=== PATIENT | male | born 1965 | race Caucasian/White ===

== ENCOUNTER 2016-09-14 | Emergency (ER) | payer OTHER | END 2016-09-14 13:23 | disposition home or self-care (01) ==

== ENCOUNTER 2017-04-24 11:26 | Emergency (ER) | payer OTHER ==
[2017-04-24 12:06] LABS: BASOPHILS % (AUTO) 0.3 %; HCT - HEMATOCRIT 43.6 % (42.0-52.0); HGB - HEMOGLOBIN 15.1 g/dL (14.0-18.0); LYMPHOCYTES # (AUTO) 1.1 10^3/uL (1.5-3.5); LYMPHOCYTES % (AUTO) 11.1 %; MEAN CORPUSCULAR HEMOGLOBIN 32.6 pg (27.0-31.0); MEAN CORPUSCULAR HGB CONC 34.6 g/dL (32.0-36.0); MEAN PLATELET VOLUME 8.3 fL (7.4-11.4); MONOCYTES # (AUTO) 0.5 10^3/uL (0.0-1.0); MONOCYTES % (AUTO) 5.4 %; NEUTROPHILS # (AUTO) 8.4 10^3/uL (1.5-6.6); NEUTROPHILS % (AUTO) 83.2 %; RED BLOOD COUNT 4.64 10^6/uL (4.70-6.10); RED CELL DISTRIBUTION WIDTH 13.4 % (12.0-15.0); UNCORRECTED WHITE BLOOD COUNT 10.1 x10^3/uL; WHITE BLOOD COUNT 10.1 x10^3/uL (4.8-10.8)
[2017-04-24 12:21] LABS: ALBUMIN/GLOBULIN RATIO 1.9 (1.0-2.2); BILIRUBIN,TOTAL 1.9 mg/dL (0.2-1.0); CALCIUM 9.5 mg/dL (8.5-10.3); CREATININE 1.5 mg/dL (0.6-1.2)
[2017-04-24 12:37] LABS: BILIRUBIN,URINE NEGATIVE (NEGATIVE)
[2017-04-24 12:53] LABS: UA w/ MICROSCOPIC CHARGE YES
[2017-04-24] MEDS ORDERED: HYDROmorphone 1 MG/ML CARPUJECT IVP STA (12:53)
[2017-04-24] MEDS ORDERED: ONDANSETRON 4 MG/2 ML VIAL IVP STA (12:53)
[2017-04-24] MEDS ORDERED: SODIUM CHLORIDE 0.9% 1,000 ML IV ONE ×2 (12:53)
--- NOTE | 2017-04-24 12:58 | ED Physician Documentation ---
PD HPI ABD PAIN - Stated complaint Stated Complaint: ABD PX - Chief complaint Chief Complaint: Abd Pain - History obtained from History obtained from: Patient, Family () - History of Present Illness Timing - onset: Other (Relatively sudden onset and constant although waxing and waning right lower quadrant pain which has not migrated since last night with multiple episodes of vomiting last night and dry heaves today, a small BM this morning. No history of abdominal surgeries. No fevers.) Review of Systems Ten Systems: 10 systems reviewed and negative Constitutional: denies: Fever, Chills Cardiac: denies: Chest pain / pressure, Palpitations Respiratory: denies: Dyspnea, Cough GI: reports: Abdominal Pain, Nausea, Vomiting. denies: Constipation, Diarrhea : reports: Hematuria (possibly last night) PD PAST MEDICAL HISTORY - Past Medical History Past Medical History: No - Past Surgical History Past Surgical History: Yes - Present Medications Home Medications: Ambulatory Orders Medication Instructions Recorded Confirmed Guaifenesin/Pseudoephedrne HCl 1 each PO BID PRN #20 tab.er.12h 09/14/16 [Mucinex D ER 600-60 mg Tablet] Ibuprofen [Motrin] 800 mg PO Q8H PRN #30 tablet 09/14/16 Mometasone Furoate [Nasonex] 1 spray NS BID #1 spray.pump 09/14/16 Ibuprofen [Motrin] 800 mg PO Q8H PRN #30 tablet 04/24/17 Oxycodone HCl/Acetaminophen 1 - 2 tab PO Q4H PRN #15 tablet 04/24/17 [Percocet 5-325 mg Tablet] Tamsulosin [Flomax] 0.4 mg PO DAILY #14 capsule 04/24/17 - Allergies Allergies/Adverse Reactions: Allergies Allergy/AdvReac Type Severity Reaction Status Date / Time No Known Drug Allergies Allergy Verified 09/14/16 11:37 - Social History Does the pt smoke?: Yes Smoking Status: Current every day smoker Does the pt drink ETOH?: Yes Does the pt have substance abuse?: No - Family History Family history: reports: Non contributory PD ED PE NORMAL - Vitals Vital signs reviewed: Yes - General General: Alert and oriented X 3, No acute distress, Other (Multiple diffuse lipomas) - HEENT HEENT: PERRL, EOMI - Neck Neck: Supple, no meningeal sign, No bony TTP - Cardiac Cardiac: RRR, No murmur - Respiratory Respiratory: No respiratory distress, Clear bilaterally - Abdomen Abdomen: Soft, Other (Mild tenderness of the right lower quadrant with negative Rovsing sign, multiple abdominal wall and diffuse lipomas. Normal bowel tones.) - Back Back: No CVA TTP, No spinal TTP - Derm Derm: Normal color, Warm and dry - Extremities Extremities: No edema, No calf tenderness / cord - Neuro Neuro: Alert and oriented X 3, Normal speech - Psych Psych: Normal mood, Normal affect Results - Vitals Vitals: Vital Signs - 24 hr 04/24/17 11:32 Temperature 36.8 C Heart Rate 57 L Respiratory 20 Rate Blood Pressure 157/87 H O2 Saturation 100 Oxygen O2 Source Room air - Labs Labs: Laboratory Tests 04/24/17 04/24/17 04/24/17 11:57 11:57 12:22 WBC 10.1 RBC 4.64 L Hgb 15.1 Hct 43.6 MCV 94.0 MCH 32.6 H MCHC 34.6 RDW 13.4 Plt Count 187 MPV 8.3 Neut # 8.4 H Lymph # 1.1 L [place] # 0.5 Eos # 0.0 Baso # 0.0 Absolute Nucleated RBC 0.00 Nucleated RBCs 0.0 Sodium 137 Potassium 4.0 Chloride 102 Carbon Dioxide 25 Anion Gap 10.0 BUN 22 H Creatinine 1.5 H Estimated GFR (MDRD) 49 L Glucose 118 H Calcium 9.5 Total Bilirubin 1.9 H AST 31 ALT 34 Alkaline Phosphatase 39 L Total Protein 7.0 Albumin 4.6 Globulin 2.4 Albumin/Globulin Ratio 1.9 Lipase 20 L Urine Color YELLOW Urine Clarity CLEAR Urine pH 6.0 Ur Specific [place] >=1.030 H Urine Protein NEGATIVE Urine Glucose (UA) NEGATIVE Urine Ketones >=80 H Urine Occult Blood MODERATE H Urine Nitrite NEGATIVE Urine Bilirubin NEGATIVE Urine Urobilinogen 0.2 (NORMAL) Ur Leukocyte Esterase NEGATIVE Urine RBC 6-10 H Urine WBC 0-3 Ur Squamous Epith Cells NONE SEEN Urine Bacteria None Seen Ur Microscopic Review INDICATED Urine Culture Comments NOT INDICATED - Rads (name of study) CT KUB Radiology: EMP read contemporaneously (Obstructing 5 mm stone in the distal right ureter with infrarenal calcifications on both sides) PD MEDICAL DECISION MAKING - ED course ED course: 52-year-old gentleman presents with acute onset right lower quadrant pain most consistent with renal colic which is proven on CT. He was pain-free after a single dose of narcotic pain medication here. The patient and family were counseled as to the diagnosis and need for follow- up. I counseled the patient with regard to signs and symptoms that would necessitate an urgent reevaluation in the emergency department. They understand they are welcome to return at any time if worse or if not improving as expected. This document was made in part using voice recognition software. While efforts are made to proofread this documents, sound alike and grammatical errors may occur. Departure - Departure Disposition: Home, Self Care Clinical Impression: Renal colic Condition: Good Record reviewed to determine appropriate education?: Yes Instructions: ED Stone Renal W Colic Prescriptions: Tamsulosin [Flomax] 0.4 mg PO DAILY #14 capsule Ibuprofen [Motrin] 800 mg PO Q8H PRN #30 tablet PRN Reason: PAIN &/OR FEVER Oxycodone HCl/Acetaminophen [Percocet 5-325 mg Tablet] 1 - 2 tab PO Q4H PRN #15 tablet PRN Reason: Pain Comments: [place] potential referral to a urologist. Strain your urine as discussed and if anything comes out [place]. Return if worse. Your blood pressure was elevated today on check into the emergency department. This does not mean that you have hypertension, it is a common phenomenon to come to the emergency department and have elevated blood pressure. I recommend that she see your primary care physician within the week to have it rechecked when you are feeling better. Do not drink or drive while taking narcotic pain medication. Note that many narcotic pain relievers also contain Tylenol/acetaminophen. Please ensure that your total dose of acetaminophen from all sources does not exceed 3 g (3000 mg) per day. You may get constipated while on this medication. Take a stool softener such as Colace twice a day while you are on it. Also add an [id number] laxative such as senna or MiraLAX on any day that you do not have a bowel movement. If you received a narcotic pain medication or sedative while in the emergency department, do not drive for the next 24 hours.
[2017-04-24] MEDS ORDERED: HYDROmorphone 1 MG/ML CARPUJECT ONE (12:59)
[2017-04-24] MEDS ORDERED: ONDANSETRON 4 MG/2 ML VIAL ONE (12:59)
--- NOTE | 2017-04-24 13:47 | CT Preliminary Report ---
Exam: CT Abdomen/Pelvis W/O IMPRESSION: 1. Obstructing ureterolithiasis in the distal right ureter results in mild hydronephrosis 2. Bilateral nonobstructing nephrolithiasis [facility] SITE ID: [id number]
--- NOTE | 2017-04-24 13:50 | CT Report ---
EXAM: CT ABDOMEN AND PELVIS (CT KUB) EXAM DATE: 04/24/2017 01:24 PM. CLINICAL HISTORY: RLQ pain, renal colic vs appy. COMPARISONS: None. TECHNIQUE: Routine axial helical CT imaging was performed through the abdomen and pelvis without IV c ontrast. Reconstructions: Coronal and sagittal. In accordance with CT protocol optimization, one or more of the following dose reduction techniques w ere utilized for this exam: automated exposure control, adjustment of mA and/or KV based on patient s ize, or use of iterative reconstructive technique. FINDINGS: Lung Bases: Subsegmental atelectasis at the bases. Right Kidney/Ureter: Asymmetric right perinephric edema. Mild right hydronephrosis. Asymmetric right periureteral edema. Obstructing ureterolithiasis in the distal right ureter, series 4, axial image 12 6, measures 5 x 4 x 4 mm, located approximately 1-2 cm above the ureterovesicular junction. Multiple nonobstructing right-sided nephrolithiasis. For example, nonobstructing nephrolithiasis in the inferi or pole right kidney, series 4, axial image 71, measures 3 mm. Left Kidney/Ureter: Multiple nonobstructing nephrolithiasis. For example, nonobstructing nephrolithia sis in the inferior pole left kidney, series 4, axial image 70, measures 5 mm. No hydronephrosis. No ureterolithiasis. Other Solid Organs: Noncontrast images of the solid organs are grossly unremarkable. Gallbladder/Bile Ducts: Unremarkable. Peritoneal Cavity: No free fluid, free air or roma adenopathy. Bowel is grossly unremarkable. Pelvic Organs: Bladder wall thickening with under distention. Vasculature: Unremarkable. Other: Degenerative disk disease at L4/L5 and L5/S1. IMPRESSION: 1. Obstructing ureterolithiasis in the distal right ureter results in mild hydronephrosis 2. Bilateral nonobstructing nephrolithiasis [facility] Referring Provider Line: [phone] SITE ID: [id number]
[2017-04-24 13:55] LABS: UR CULTURE IF IND NOT INDICATED; WBC,URINE 0-3 /HPF (0-3)
[2017-04-24] MEDS ORDERED: KETOROLAC 60 MG/2 ML VIAL IVP STA (14:20)
[2017-04-24] MEDS ORDERED: KETOROLAC 60 MG/2 ML VIAL ONE (14:28)
[2017-04-24 14:52] VITALS: BP 142/72
== END 2017-04-24 15:05 | disposition home or self-care (01) ==
LOC: ED 11:26
DX: N23 Unspecified renal colic (principal); R03.0 Elevated blood-pressure reading, without diagnosis of hypertension; F17.200 Nicotine dependence, unspecified, uncomplicated
CPT/HCPCS: 36415; 74176; 80053; 81001; 83690; 85025; 96374; 96375; 99283; 99284; J1170; 81003; 87086

== ENCOUNTER 2018-08-05 16:25 | Emergency (ER) | payer OTHER ==
[2018-08-05 16:33] VITALS: BP 145/89
[2018-08-05] MEDS ORDERED: LIDOCAINE 1% 2 ML VIAL TD STA (17:06)
[2018-08-05] MEDS ORDERED: LIDOCAINE 1% 2 ML VIAL ONE (17:29)
--- NOTE | 2018-08-05 18:06 | ED Physician Documentation ---
History of Present Illness - Stated complaint Stated Complaint: FINGER LAC - Chief complaint Chief Complaint: Laceration PD PAST MEDICAL HISTORY - Past Medical History Past Medical History: No - Past Surgical History Past Surgical History: Yes - Present Medications Home Medications: Ambulatory Orders Medication Instructions Recorded Confirmed Guaifenesin/Pseudoephedrne HCl 1 each PO BID PRN #20 tab.er.12h 09/14/16 [Mucinex D ER 600-60 mg Tablet] Ibuprofen [Motrin] 800 mg PO Q8H PRN #30 tablet 09/14/16 Mometasone Furoate [Nasonex] 1 spray NS BID #1 spray.pump 09/14/16 Ibuprofen [Motrin] 800 mg PO Q8H PRN #30 tablet 04/24/17 Oxycodone HCl/Acetaminophen 1 - 2 tab PO Q4H PRN #15 tablet 04/24/17 [Percocet 5-325 mg Tablet] Tamsulosin [Flomax] 0.4 mg PO DAILY #14 capsule 04/24/17 - Allergies Allergies/Adverse Reactions: Allergies Allergy/AdvReac Type Severity Reaction Status Date / Time No Known Drug Allergies Allergy Verified 08/05/18 16:33 - Social History Does the pt smoke?: Yes Smoking Status: Current every day smoker Does the pt drink ETOH?: Yes Does the pt have substance abuse?: No Results - Vitals Vitals: Vital Signs - 24 hr 08/05/18 16:31 Temperature 36.4 C L Heart Rate 87 Respiratory 20 Rate Blood Pressure 145/89 H O2 Saturation 98 Oxygen O2 Source Room air Procedures - Laceration (location) L index Length in cm: 4.5 Wound type: Curved Neurovascular status: Sensory intact, Motor intact Anesthesia: Lidocaine 1% (dig block), Volume - enter cc (5) Wound Preparation: Irrigated copiously NS (500 + cc by CASH Waddell), Wound explored, To the base. No: FB identified Skin layer closure: Nylon, Interrupted, Size #-0 - enter number (5), Sutures - enter # (7) Other: Patient tolerated well, No complications, Dressing applied, Tetanus UTD. No: Neurovascular intact (dig block still in effect) Departure - Departure Disposition: 01 Home, Self Care Clinical Impression: Laceration Condition: Good Instructions: ED Laceration Hand Comments: Keep the wound clean Apply antibiotic ointment twice a day Sutures out in 10 days We washed the wound very very carefully. But even with good wound care, some wounds get infected. If you notice any redness swelling discharge streaks or fever come back to the ER for a wound check. Forms: Activity restrictions
== END 2018-08-05 18:58 | disposition home or self-care (01) ==
LOC: ED 16:25
DX: S61.211A Laceration without foreign body of left index finger without damage to nail, initial encounter (principal); W27.0XXA Contact with workbench tool, initial encounter; F17.200 Nicotine dependence, unspecified, uncomplicated
CPT/HCPCS: 12002; 99282; 99283

== ENCOUNTER 2018-12-21 11:59 | Emergency (ER) | payer OTHER ==
[2018-12-21 12:06] VITALS: BP 174/86
[2018-12-21] MEDS ORDERED: ceFAZolin 1 GM VIAL IM STA (12:21)
[2018-12-21] MEDS ORDERED: BUFFERED LIDOCAINE 10 ML SYRINGE SUBQ STA (12:21)
[2018-12-21] MEDS ORDERED: BUPIVACAINE 0.5% PF 10 ML VIAL SUBQ STA (12:23)
--- NOTE | 2018-12-21 12:23 | ED Physician Documentation ---
PD HPI UPPER EXT INJURY - Stated complaint Stated Complaint: RT RING FINGER LAC - Chief complaint Chief Complaint: Ext Problem - History obtained from History obtained from: Patient - History of Present Illness Location: Right (Generally healthy 53-year-old gentleman who is up-to-date on tetanus who got his right ring finger caught between 2 logs and crushed at home just prior to arrival.) Review of Systems Ten Systems: 10 systems reviewed and negative Constitutional: reports: Reviewed and negative Cardiac: reports: Reviewed and negative Respiratory: reports: Reviewed and negative PD PAST MEDICAL HISTORY - Past Medical History Past Medical History: No - Past Surgical History Past Surgical History: Yes - Present Medications Home Medications: Ambulatory Orders Medication Instructions Recorded Confirmed Cephalexin [Keflex] 500 mg PO Q6H #28 capsule 12/21/18 Hydrocodone/Acetaminophen 1 - 2 each PO Q6H PRN #14 tablet 12/21/18 [Hydrocodon-Acetaminophen 5-325] - Allergies Allergies/Adverse Reactions: Allergies Allergy/AdvReac Type Severity Reaction Status Date / Time No Known Drug Allergies Allergy Verified 12/21/18 12:06 - Social History Does the pt smoke?: Yes Smoking Status: Current every day smoker Does the pt drink ETOH?: Yes Does the pt have substance abuse?: No - Family History Family history: reports: Non contributory - Immunizations Immunizations: TDAP current <10years - POLST Patient has POLST: No PD ED PE NORMAL - Vitals Vital signs reviewed: Yes - General General: Alert and oriented X 3, No acute distress - Extremities Extremities: Other (There is a circumferential blunt force type laceration of the right ring finger with basically a degloving injury just distal to the DIP. The nail is completely avulsed from the proximal nail bed but tacked down to the amputated portion which is hanging by soft tissue.) - Neuro Neuro: Alert and oriented X 3, Normal speech Results - Vitals Vitals: Vital Signs - 24 hr 12/21/18 12/21/18 12:02 12:51 Temperature 36.7 C Heart Rate 111 H Respiratory 16 18 Rate Blood Pressure 174/86 H O2 Saturation 94 Oxygen O2 Source Room air Procedures - Laceration (location) R 4th finger Length in cm: 3 Wound type: Stellate, Irregular Neurovascular status: No: Sensory intact Anesthesia: Lidocaine 1%, Marcaine 0.5%, OTH (digital block with 50/50) Wound Preparation: Hibiclens, Irrigated copiously NS Skin layer closure: Nylon, Interrupted, Size #-0 - enter number (5-0) Other: Tetanus UTD Complexity: Simple PD MEDICAL DECISION MAKING - ED course ED course: 53-year-old gentleman with basically degloving tip amputation of the right fourth finger. He is insensate at the tip and has a comminuted tuft fracture. Case was discussed by phone with the on-call orthopedic consultants, Dr. London who recommended a trial of reattachment, but is somewhat pessimistic about the overall and long-term potential to keep the tip of his finger. But he did recommend tacking it back down and letting it declare itself. He was administered 2 g of Ancef IV. Excellent anesthesia was obtained with a digital block. Departure - Departure Disposition: 01 Home, Self Care Clinical Impression: Traumatic amputation of fingertip Qualifiers: Encounter type: initial encounter Qualified Code(s): S68.119A - Complete traumatic metacarpophalangeal amputation of unspecified finger, initial encounter Open fracture of finger of right hand Qualifiers: Encounter type: initial encounter Finger: ring finger Phalanx: distal Fracture alignment: displaced Qualified Code(s): S62.634B - Displaced fracture of distal phalanx of right ring finger, initial encounter for open fracture Condition: Good Record reviewed to determine appropriate education?: Yes Instructions: ED Fx Finger Open Follow-Up: [facility] [Provider Group] Prescriptions: Cephalexin [Keflex] 500 mg PO Q6H #28 capsule Hydrocodone/Acetaminophen [Hydrocodon-Acetaminophen 5-325] 1 - 2 each PO Q6H PRN #14 tablet PRN Reason: pain Comments: Call the orthopedic Clinic today for an appointment for a wound check on . Let them know that we spoke with Dr. London today and he would like you to be closely followed. As discussed we are hopeful that the fingertip will be viable, but there is a chance that it will not survive and need eventual amputation. Return for severe pain or for new worsening symptoms. Elevate as much as possible. As discussed it is important not to smoke or use nicotine during this time to improve blood flow to the fingertip.
[2018-12-21] MEDS ORDERED: ceFAZolin 2 GM/50 ML 2 GM/50 ML BAG IV STA (12:24)
--- NOTE | 2018-12-21 12:56 | XRAY Report ---
Reason: finger inj Procedure Date: 12/21/2018 Accession Number: [id number] / [id number] Procedure: XR - Finger(s) RT CPT Code: FULL RESULT: EXAM: RIGHT FOURTH DIGIT RADIOGRAPHY EXAM DATE: 12/21/2018 12:51 PM. CLINICAL HISTORY: Finger injury. COMPARISON: None. TECHNIQUE: 3 views. FINDINGS: Bones: Normal. No fracture or bone lesion. Joints: Normal. No subluxations. Soft Tissues: Soft tissue disruption of the distal fourth ray. IMPRESSION: Comminuted fracture of the distal tuft of the fourth ray, open fracture. [facility]
== END 2018-12-21 13:17 | disposition home or self-care (01) ==
LOC: ED 11:59
DX: S68.624A Partial traumatic transphalangeal amputation of right ring finger, initial encounter (principal); W23.0XXA Caught, crushed, jammed, or pinched between moving objects, initial encounter; Y92.009 Unspecified place in unspecified non-institutional (private) residence as the place of occurrence of the external cause; F17.200 Nicotine dependence, unspecified, uncomplicated
CPT/HCPCS: 12002; 73140; 96365; 99283; J0690

== ENCOUNTER 2021-07-27 07:16 | Outpatient (CLI) | payer OTHER | END 2021-07-27 07:17 | disposition critical access hospital (66) | LOC: EMS 07:16 | DX: R07.9 Chest pain, unspecified (principal) | CPT/HCPCS: A0425; A0427 ==

== ENCOUNTER 2021-07-27 07:38 | Emergency (ER) | payer OTHER ==
[2021-07-27 08:00] LABS: BASOPHILS % (AUTO) 0.5 %; EOSINOPHILS # (AUTO) 0.1 10^3/uL (0.0-0.7); EOSINOPHILS % (AUTO) 1.1 %; HCT - HEMATOCRIT 43.8 % (42.0-52.0); HGB - HEMOGLOBIN 14.6 g/dL (14.0-18.0); LYMPHOCYTES # (AUTO) 1.6 10^3/uL (1.5-3.5); LYMPHOCYTES % (AUTO) 26.1 %; MEAN CORPUSCULAR HEMOGLOBIN 31.5 pg (27.0-31.0); MEAN CORPUSCULAR HGB CONC 33.3 g/dL (32.0-36.0); MEAN CORPUSCULAR VOLUME 94.6 fL (80.0-94.0); MEAN PLATELET VOLUME 9.9 fL (7.4-11.4); MONOCYTES # (AUTO) 0.4 10^3/uL (0.0-1.0); PLT - PLATELET COUNT 194 10^3/uL (130-450); RED BLOOD COUNT 4.63 10^6/uL (4.70-6.10); RED CELL DISTRIBUTION WIDTH 12.8 % (12.0-15.0); WHITE BLOOD COUNT 6.1 x10^3/uL (4.8-10.8)
[2021-07-27] MEDS ORDERED: DEXAMETHASONE 10 MG/ML VIAL IVP STA (08:04)
[2021-07-27] MEDS ORDERED: KETOROLAC 30 MG/ML VIAL IVP STA (08:04)
[2021-07-27 08:12] LABS: ALBUMIN/GLOBULIN RATIO 1.5 (1.0-2.2); BILIRUBIN,TOTAL 1.4 mg/dL (0.2-1.0); CALCIUM 9.1 mg/dL (8.5-10.3); CREATININE 0.9 mg/dL (0.6-1.2); POTASSIUM 4.5 mmol/L (3.5-5.0); TOTAL PROTEIN 6.7 g/dL (6.7-8.2)
--- NOTE | 2021-07-27 08:21 | ED Physician Documentation ---
PD HPI CHEST PAIN - Stated complaint Stated Complaint: CP/NAUSEA - Chief complaint Chief Complaint: Cardiac - History obtained from History obtained from: Patient - History of Present Illness Timing - onset: Enter time (614), Today Timing - onset during: Rest Timing - duration: Minutes Timing - details: Abrupt onset, Still present, Still present in ED Pain level max: 8 Pain level now: 8 Quality: Sharp, Pain Location: Substernal, Left chest Radiation: No: Jaw, Neck, Back, Abdominal, Left upper extremity, Right upper extremity Improved by: Rest Worsened by: Inspiration, Movement, Position Associated symptoms: Diaphoresis. 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 The pain mounted became an 8 out of 10 and the patient began to become concerned and called 911. He states that he did have some diaphoresis associated with this which resolved he had a second episode of diaphoresis. He did not have nausea he did not have radiation of the pain. He has pain with inspiration. Pain is well localized. 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 He has had these episodes previously which are much milder and spontaneously resolved. He has not had a problem previously with his heart.He has not recently been ill. Review of Systems Constitutional: denies: Fever Eyes: denies: Decreased vision Ears: denies: Ear pain Nose: denies: Congestion Throat: denies: Sore throat Cardiac: reports: Chest pain / pressure. denies: Palpitations, Pedal edema, Calf pain Respiratory: denies: Dyspnea, Cough, Wheezing GI: denies: Abdominal Pain, Nausea, Vomiting, Constipation, Diarrhea : denies: Dysuria, Frequency Skin: denies: Rash Musculoskeletal: denies: Neck pain, Back pain, Extremity pain Neurologic: denies: Generalized weakness, Focal weakness, Numbness PD PAST MEDICAL HISTORY - Past Medical History Past Medical History: Yes Cardiovascular: None Respiratory: None Neuro: None Endocrine/Autoimmune: None GI: None : None HEENT: None Psych: None Musculoskeletal: None Derm: None - Past Surgical History Past Surgical History: Yes - Present Medications Home Medications: Ambulatory Orders Medication Instructions Recorded Confirmed Hydrocodone/Acetaminophen 1 - 2 each PO Q6H PRN #14 tablet 12/21/18 [Hydrocodon-Acetaminophen 5-325] cephALEXin [Keflex] 500 mg PO Q6H #28 capsule 12/21/18 HYDROcod/ACETAM 5/325 [[place] 5/325] 1 - 2 tablet PO Q6H PRN #14 tablet 07/27/21 - Allergies Allergies/Adverse Reactions: Allergies Allergy/AdvReac Type Severity Reaction Status Date / Time No Known Drug Allergies Allergy Verified 07/27/21 07:54 - Social History Does the pt smoke?: Yes Smoking Status: Current every day smoker Does the pt drink ETOH?: Yes Does the pt have substance abuse?: No - Immunizations Immunizations: TDAP current <10years - POLST Patient has POLST: No PD ED PE NORMAL - Vitals Vital signs reviewed: Yes (normal ) - General General: Alert and oriented X 3, No acute distress, Well developed/nourished, Other (Muscular 56 y/o male in no distress has "lumpy" arms with multiple lipomas) - HEENT HEENT: Atraumatic, PERRL, EOMI - Neck Neck: Supple, no meningeal sign, No bony TTP - Cardiac Cardiac: RRR, No murmur - Respiratory Respiratory: No respiratory distress, Clear bilaterally, Other (no chest wall pain to palpation ) - Abdomen Abdomen: Soft, Non tender - Back Back: No CVA TTP, No spinal TTP - Derm Derm: Normal color, Warm and dry, No rash, Other (multiple subcutaneous lipomas) - Extremities Extremities: No edema - Neuro Neuro: Alert and oriented X 3, floorwalker 2-12 intact, No motor deficit, No sensory deficit, Normal speech Eye Opening: Spontaneous Motor: Obeys Commands Verbal: Oriented GCS Score: 15 - Psych Psych: Normal mood, Normal affect Results - Vitals Vitals: Vital Signs - 24 hr 1207/27/21 07/27/21 07:51 09:02 10:16 Temperature 36.5 C Heart Rate 72 74 76 Respiratory 16 12 14 Rate Blood Pressure 118/76 121/88 H 131/98 H O2 Saturation 99 95 98 Oxygen O2 Source Room air - EKG (time done) 0743 Rate: Rate (enter#) (70) Rhythm: NSR Ischemia: ST elevation c/w repol (minimal V2/3 only) Compare to prior EKG: Old EKG unavailable Computer interpretation: Agree with computer - Labs Labs: Laboratory Tests 07/27/21 07/27/21 07/27/21 07:54 07:54 07:54 WBC 6.1 RBC 4.63 L Hgb 14.6 Hct 43.8 MCV 94.6 H MCH 31.5 H MCHC 33.3 RDW 12.8 Plt Count 194 MPV 9.9 Neut # (Auto) 4.0 Lymph # (Auto) 1.6 [place] # (Auto) 0.4 Eos # (Auto) 0.1 Baso # (Auto) 0.0 Absolute Nucleated RBC 0.00 Nucleated RBC % 0.0 D-Dimer Sodium 135 Potassium 4.5 Chloride 101 Carbon Dioxide 27 Anion Gap 7.0 BUN 16 Creatinine 0.9 Estimated GFR (MDRD) 87 L Glucose 116 H Calcium 9.1 Total Bilirubin 1.4 H AST 16 ALT 19 Alkaline Phosphatase 43 Troponin I High Sens 3.4 Total Protein 6.7 Albumin 4.0 Globulin 2.7 Albumin/Globulin Ratio 1.5 Lipase 26 07/27/21 07/27/21 09:06 10:09 WBC RBC Hgb Hct MCV MCH MCHC RDW Plt Count MPV Neut # (Auto) Lymph # (Auto) [place] # (Auto) Eos # (Auto) Baso # (Auto) Absolute Nucleated RBC Nucleated RBC % D-Dimer 392.5 H Sodium Potassium Chloride Carbon Dioxide Anion Gap BUN Creatinine Estimated GFR (MDRD) Glucose Calcium Total Bilirubin AST ALT Alkaline Phosphatase Troponin I High Sens 3.5 Total Protein Albumin Globulin Albumin/Globulin Ratio Lipase - Rads (name of study) chest Radiology: Prelim report reviewed (Impression: No acute cardiopulmonary abnormality.), EMP read indepedently, See rad report PD MEDICAL DECISION MAKING - ED course Complexity details: reviewed old records, reviewed results, re-evaluated patient, considered differential, d/w patient ED course: Previously well 56-year-old male in good physical condition has developed pleuritic chest pain in the left side of his chest. Pain was significant enough that the patient is called 911 and he has come to the emergency department for evaluation. An electrocardiogram done shows some subtle ST elevation in V2 and V3 without reciprocal changes and without meeting criteria for STEMI. His initial troponin is normal. The remainder of his work-up is normal as well. He is administered dexamethasone and Toradol. Departure - Departure Disposition: 01 Home, Self Care Clinical Impression: Pleurisy Condition: Stable Instructions: ED Chest Pain Pleurisy Follow-Up: [facility] [Provider Group] Prescriptions: HYDROcod/ACETAM 5/325 [[place] 5/325] 1 - 2 tablet PO Q6H PRN #14 tablet PRN Reason: Pain
--- NOTE | 2021-07-27 08:48 | XRAY Report ---
PROCEDURE: Chest 1 View X-Ray INDICATIONS: chest pain TECHNIQUE: One view of the chest was acquired. COMPARISON: None FINDINGS: Surgical changes and devices: None. Lungs and pleura: No pleural effusions or pneumothorax. Lungs are clear. Mediastinum: Mediastinal contours appear normal. Heart size is normal. Bones and chest wall: No suspicious bony lesions. Overlying soft tissues appear unremarkable. IMPRESSION: No acute cardiopulmonary abnormality Reviewed by: Bruno Kamara on 07/27/2021 7:47 AM [facility] Approved by: Bruno Kamara on 07/27/2021 7:47 AM [facility] Station ID: [id number]
[2021-07-27] MEDS ORDERED: IOPAMIDOL-300 100 ML VIAL ONE (09:41)
[2021-07-27] MEDS ORDERED: IOPAMIDOL-300 100 ML VIAL IVP ONE (10:03)
--- NOTE | 2021-07-27 10:27 | CT Report ---
PROCEDURE: ANGIO CHEST W/WO INDICATIONS: pleuritic chest pain elevated d-dimer CONTRAST: IV CONTRAST: Isovue 300 ml: 100 PO CONTRAST: *NO PO CONTRAST TECHNIQUE: After the administration of intravenous contrast, 2 mm axial images were acquired from the pulmonary apices to the posterior costophrenic angles during the arterial phase. In addition, 1 mm lung kernel and 5 mm soft tissue kernel reconstructions were performed. 3-dimensional coronal oblique maximum int ensity projection (MIP) reformats, 8 mm axial MIP, and 5 mm coronal and sagittal MPR reformats were t hen performed through the thorax. For radiation dose reduction, the following was used: automated exp osure control, adjustment of mA and/or kV according to patient size. COMPARISON: None FINDINGS: Image quality: Excellent. Pulmonary arteries: Pulmonary arteries are normal in size, and demonstrate no intraluminal filling d efects to suggest central pulmonary embolism. Lungs and pleura: Lungs are clear. No pleural effusions or pneumothorax. Central and peripheral ai rways are patent. There is mild bibasilar atelectasis. Mediastinum: Heart size is normal, without pericardial effusion. No mediastinal or hilar adenopathy . Thoracic aorta is normal in caliber and enhancement. Esophagus is normal in caliber, without hiat al hernia. Bones and chest wall: No suspicious bony lesions. Ribs and thoracic spine appear intact throughout. No axillary or supraclavicular adenopathy. The thyroid is normal in size and there are no incident al findings. Abdomen: Visualized upper abdominal solid organs appear normal in the early arterial phase of enhanc ement. IMPRESSION: 1. No pulmonary embolism. 2. No acute abnormality of the chest. CLINICAL RECOMMENDATION STATEMENTS: In patients <35 years with an ITN detected on CT, MRI, or extrathyroidal ultrasound, the Committee re commends further evaluation with dedicated thyroid ultrasound if the nodule is "e1 cm and has no susp icious imaging features, and if the patient has normal life expectancy. In patients "e35 years with an ITN detected on CT, MRI, or extrathyroidal ultrasound, the Committee r ecommends further evaluation with dedicated thyroid ultrasound if the nodule is "e1.5 cm and has no s uspicious imaging features, and if the patient has normal life expectancy. (ACR, 2014) Reviewed by: Bruno Kamara on 07/27/2021 9:26 AM [facility] Approved by: Bruno Kamara on 07/27/2021 9:26 AM [facility] Station ID: [id number]
[2021-07-27 11:16] VITALS: BP 150/103
== END 2021-07-27 11:18 | disposition home or self-care (01) ==
LOC: EDUNIT# → ED 07:38
DX: R09.1 Pleurisy (principal); F17.200 Nicotine dependence, unspecified, uncomplicated
CPT/HCPCS: 36415; 71045; 71275; 80053; 83690; 84484; 85025; 85379; 93005; 96374; 99284; Q9967

== ENCOUNTER 2023-12-10 10:43 | Day surgery (SDC) | payer OTHER ==
[~2023-12-10 10:43] MED LIST: ceFAZolin 2 GM VIAL ONE
[2023-12-10] MEDS: LACTATED RINGERS 1,000 ML IV ONE (10:48)
[2023-12-10] MEDS ORDERED: ceFAZolin 2 GM VIAL ONE (11:18)
[2023-12-10] MEDS ORDERED: LIDOCAINE 1%-EPI 1:100000 20 ML MDV ONE (11:54)
[2023-12-10] MEDS ORDERED: BUPIVACAINE 0.25% PF 30 ML VIAL ONE ×2 (11:54→13:19)
--- NOTE | 2023-12-10 12:02 | ANESTHESIA ---
Pre-Anesthesia VS, & Labs - Diagnosis lipomas - Procedure multiple lipoma excisions Vital Signs: Temp Pulse Resp BP Pulse Ox O2 Flow Rate 36.5 C 83 18 124/68 99 12/10/23 11:04 12/10/23 11:04 12/10/23 11:04 12/10/23 11:04 12/10/23 11:04 Height: 6 ft 2 in Weight (kg): 109.6 kg Body Mass Index: 31.0 BMI Classification: Obese - NPO >8 hours Home Medications and Allergies Allergies/Adverse Reactions: Allergies Allergy/AdvReac Type Severity Reaction Status Date / Time No Known Drug Allergies Allergy Verified 07/27/21 07:54 Anes History & Medical History - Anesthetic History Anesthesia Complications: reports: No previous complications Family history of Anesthesia Complications: Denies Family history of Malignant Hyperthermia: Denies - Medical History Cardiovascular: reports: None Pulmonary: reports: Sleep apnea, CPAP use Gastrointestinal: reports: None Urinary: reports: Kidney stones Neuro: reports: None Musculoskeletal: reports: None Endocrine/Autoimmune: reports: None Blood Disorders: reports: None Skin: reports: Other Smoking Status: Current every day smoker Psychosocial: reports: No issues indicated - Surgical History Orthopedic: reports: Spine surgery Other Past Surgical History: pt reports over 200 lipomas removed over the years Exam General: Alert, Oriented x3, Cooperative Dental: Other (both central incisiors chipped and broken) Mouth Openin Fingerbreadth Neck Mobility: Normal Mallampati classification: II Thyromental Distance: 4-6 cm Respiratory: Lungs clear Cardiovascular: Regular rate Plan Anesthesia Type: General Consent for Procedure(s) Verified and Reviewed: Yes Code Status: Attempt Resuscitation ASA classification: 2-Mild systemic disease Is this case an emergency?: No
[2023-12-10] MEDS ORDERED: fentaNYL 100 MCG/2 ML VIAL ONE (12:12)
[2023-12-10] MEDS ORDERED: PROPOFOL 200 MG/20 ML VIAL IVP ONE ×2 (12:12→15:37)
[2023-12-10] MEDS ORDERED: MIDAZOLAM 2 MG/2 ML VIAL ONE (12:12)
--- NOTE | 2023-12-10 12:44 | HISTORY & PHYSICAL EXAMINATION ---
Chief Complaint - Chief Complaint Chief Complaint: bilateral arm and suprapubic painful lipomas History of Present Illness - History Obtained From Records Reviewed: yes History obtained from: pt Exam Limitations: none - History of Present Illness HPI Comment/Other: growing and painful lipomas both arms and suprapubic History - Past Medical History Cardiovascular: reports: None Respiratory: reports: Sleep apnea, CPAP use Neuro: reports: None Endocrine/Autoimmune: reports: None GI: reports: None : reports: Kidney stones HEENT: reports: None Psych: reports: None Musculoskeletal: reports: None Derm: reports: Other MRSA Hx?: No - Past Surgical History Ortho: reports: Spine surgery Other past surgical history: pt reports over 200 lipomas removed over the years - POLST Patient has POLST: No Meds/Allgy - Home Medications Home Medications: Ambulatory Orders Medication Instructions Recorded Confirmed Hydrocodone/Acetaminophen 1 - 2 each PO Q6H PRN #14 tablet 12/21/18 [Hydrocodon-Acetaminophen 5-325] cephALEXin [Keflex] 500 mg PO Q6H #28 capsule 12/21/18 HYDROcod/ACETAM 5/325 [Tate 5/325] 1 - 2 tablet PO Q6H PRN #14 tablet 07/27/21 - Allergies Allergies/Adverse Reactions: Allergies Allergy/AdvReac Type Severity Reaction Status Date / Time No Known Drug Allergies Allergy Verified 07/27/21 07:54 Review of Systems - Other Findings Other Findings: 10 pt ros as above otherwise unremarkable Exam - Vital Signs Reviewed Vital Signs: Yes Vital Signs: Vital Signs x48h Temp Pulse Resp BP Pulse Ox 12/10/23 11:04 36.5 C 83 18 124/68 99 - Physical Exam General Appearance: positive: No acute distress, Alert Eyes Bilateral: positive: PERRL, EOMI ENT: positive: No signs of dehydration Neck: positive: No JVD Respiratory: positive: No respiratory distress Cardiovascular: positive: Regular rate & rhythm Abdomen: positive: Other (suprapubic lipoma) Extremities: positive: Other (multiple bilateral arm lipomas) Neurologic/Psychiatric: positive: Oriented x3 Conclusion/Plan - Problem List (1) Multiple lipomas Conclusion/Plan: plan excision marked lipomas arms and suprapubic parq held and consent obtained
[2023-12-10] MEDS: LIDOCAINE 1%-EPI 1:100000 50 ML VIAL SUBQ ONE (13:17)
[2023-12-10] MEDS ORDERED: DEXAMETHASONE 4 MG/ML VIAL ONE (13:19)
[2023-12-10] MEDS ORDERED: HYDROmorphone 1 MG/ML CARPUJECT ONE (13:21)
[2023-12-10] MEDS ORDERED: METOCLOPRAMIDE 10 MG/2 ML VIAL IVP PRN (13:39)
[2023-12-10] MEDS ORDERED: ONDANSETRON 4 MG/2 ML VIAL IVP PRN (13:39)
[2023-12-10] MEDS ORDERED: NALOXONE 0.4 MG/ML VIAL IVP PRN (13:39)
[2023-12-10] MEDS ORDERED: ATROPINE ABBOJECT 1 MG/10 ML SYRINGE IVP PRN (13:39)
[2023-12-10] MEDS ORDERED: fentaNYL 100 MCG/2 ML VIAL IVP PRN (13:39)
[2023-12-10] MEDS ORDERED: ePHEDrine 50 MG/ML VIAL IVP PRN (13:39)
[2023-12-10] MEDS ORDERED: MORPHINE 2 MG/ML CARPUJECT IVP PRN (13:39)
[2023-12-10] MEDS ORDERED: HYDROmorphone 0.5 MG/0.5 ML SYRINGE IVP PRN ×2 (13:39→15:50)
[2023-12-10] MEDS ORDERED: LACTATED RINGERS 1,000 ML IV SCH (14:00)
[2023-12-10] MEDS: BUPIVACAINE 0.25% PF 30 ML VIAL SUBQ ONE (14:25)
[2023-12-10] MEDS: LACTATED RINGERS 800 ML IV ONE (15:51)
--- NOTE | 2023-12-10 15:54 | OPERATIVE REPORT ---
Operative Report - General Procedure Date: 12/10/23 Planned Procedure: excision symptomatic lipomas bilateral arms and suprapubic Pre-Op Diagnosis: symptomatic lipomas bilateral arms and suprapubic Procedure Performed: excision symptomatic lipomas Post Op Diagnosis: as above - Procedure Note Anesthesia Technique: General LMA, Local Pathology: sent to path Estimated Blood Loss (mL): 25 Indications: painful lipomas Findings: see body of report Complications: none - Other Other Information/Narrative: The patient was prepped identified brought to the operating room and placed in supine position. Laryngeal mask anesthesia was induced. He was prepped and draped in a sterile fashion and given preoperative antibiotics. He has innumerable lipomas. The lipoma was the most concern and to excise were marked prior to surgery. He had approximately 6 cm suprapubic lipoma subcutaneous which was removed through a elliptical 7 cm incision. Intermediate repair was performed with running 3-0 Vicryl suture followed by buried interrupted subdermal 3-0 Vicryl sutures. Skin was closed with a running 4-0 Monocryl subcuticular suture. He had bilateral subcutaneous lipomas approximately at the wrist location both measuring approximately 5 cm. Again elliptical incisions were made and lipomas removed with gentle retraction and cutting current cautery. Intermediate repair again performed of both of these 4 cm incisions. Buried interrupted subdermal 3-0 Vicryl sutures were placed followed by running closure with a 4-0 Monocryl. Right forearm had 2 additional proximately 3 and half to 4 cm lipomas which were removed with vertical incisions and intermediate repair again performed of two 3 cm incisions. On the left forearm he had a cluster of lipomas measuring approximately 6 x 8 cm. An elliptical 6 cm incision was made and the cluster of subcutaneous lipomas were removed. Intermediate repair again performed with running 3-0 Vicryl suture followed by buried interrupted subdermal 3-0 Vicryl sutures and then a running 4-0 Monocryl subcuticular suture. He had a very large cluster of subcutaneous lipomas measuring approximately 10 x 6 cm that crossed from the forearm to the upper arm. These were removed with an elliptical skin incision measuring approximately 8 x 4 cm in width. Intermediate repair again performed in similar fashion. He had an additional cluster of upper arm subcutaneous lipomas measuring approximately 6 x 6 cm which was removed with an elliptical 6 cm incision. Intermediate repair again performed. Dressings were applied. Billy wrap was placed on the left arm. He tolerated the procedure well was awakened and brought to recovery in good condition.
[2023-12-10 16:43] VITALS: O2SAT 98
[2023-12-10] MEDS ORDERED: HYDROcod/ACETAM 5/325 MG TABLET ONE (16:43)
[2023-12-10] MEDS: HYDROcod/ACETAM 5/325 MG TABLET PO PRN (16:45)
[2023-12-10] MEDS ORDERED: ONDANSETRON 4 MG/2 ML VIAL ONE (16:50)
[2023-12-10] MEDS ORDERED: ONDANSETRON 4 MG/2 ML VIAL IVP ONE (16:52)
[2023-12-10] MEDS: ONDANSETRON 4 MG/2 ML VIAL ONE (16:53)
[2023-12-10 17:40] VITALS: BP 152/98
== END 2023-12-10 10:44 | disposition home or self-care (01) ==
LOC: SDS 10:43
PROVIDERS: ATTEND Surgery
PROC: 0JBH0ZZ Excision of Left Lower Arm Subcutaneous Tissue and Fascia, Open Approach (ICD-10-PCS; 2023-12-10)
PROC: 0JBG0ZZ Excision of Right Lower Arm Subcutaneous Tissue and Fascia, Open Approach (ICD-10-PCS; 2023-12-10)
PROC: 0JB80ZZ Excision of Abdomen Subcutaneous Tissue and Fascia, Open Approach (ICD-10-PCS; principal; 2023-12-10 12:30)
DX: D17.22 Benign lipomatous neoplasm of skin and subcutaneous tissue of left arm (principal); D17.21 Benign lipomatous neoplasm of skin and subcutaneous tissue of right arm; D17.1 Benign lipomatous neoplasm of skin and subcutaneous tissue of trunk; E66.9 Obesity, unspecified; Z68.31 Body mass index [BMI] 31.0-31.9, adult; F17.200 Nicotine dependence, unspecified, uncomplicated; G47.30 Sleep apnea, unspecified
CPT/HCPCS: 22903; 25071; A9270; J1170; J3490; J7120